=== PATIENT | male | born 1965 | race Caucasian/White ===

== ENCOUNTER 2024-06-16 13:51 | Outpatient (AMB) | payer MEDICAID, SELFPAY ==
[2024-06-16 14:03] VITALS: BP 111/78; PULSE 71; RESP 16; TEMP 36.2; O2SAT 97; BMI 20.6
--- NOTE | 2024-06-16 14:03 | PD.ORTHCLVIS ---
Vital signs 06/16/24 14:03 Height 1.85 m Height Method Stated Weight 71.016 kg Weight Measurement Method Standing Scale BMI 20.6 BP 111/78 Blood Pressure Source Automatic Cuff Blood Pressure Location Left Upper Arm Position Sitting Respiration 16 Pulse 71 Pulse Source Monitor Temp 97.1 F Temp Source Temporal Artery Scan Pulse Oximetry (%) 97 Oxygen Delivery Method Room Air Med/Allergies Allergies & Medications Allergies NKA* Allergy (Uncoded 06/16/24 14:04) Medication Reconciliation No Known Home Medications 06/16/24 [History] Exam Exam Patient is in no acute distress and is cooperative with the examination today. Breathing is nonlabored. Patient has a normal mood and affect. Bilateral extremities were evaluated and demonstrates sensation intact to light touch. Palpable pedal pulses are present. No significant edema is present. Bilateral hips were examined. The patient has no pain with log roll of the hips. Internal rotation to 30 degrees and external rotation to 30 degrees is painless. Negative FADIR. Left knee incision is clean dry and intact. Range of motion 0-105. The right knee was also examined. The right knee is in [varus] alignment. Range of motion from [0-115] degrees. Knee is stable to varus and valgus as well as AP translation with <5mm. Patient has a [negative] McMurrays. There is [no] pain with patellofemoral compression and [no] crepitus noted. The knee is [tender] to palpation [medially]. Assessment and Plan Problem List (1) Status post total knee replacement: Status: Acute (2) Arthritis of knee, right: Status: Acute Plan: Patient is a pleasant 4-year-old male with right knee pain and right knee arthritis. The pain is affecting his quality life and happiness. There is marked deformity of his knee due to the [id number]-zcvu arthritis. We discussed total knee replacement is a reasonable option. He has a lot going on medically and has to get his cataracts taken care of. He will see me when he is ready. He would like to get cortisone injections and we will need authorization for this. Office Procedures GNS Level of Care Nursing/Assessment Patient Status: Initial/New Patient Nursing Assessment/Reassesment: Medication Reconciliation, Update PMH in EMR and Vital Signs Coordination of Care: Complex Care and Chronic Disease 1-5, Education Complex Pt/Fam, Consent,records obtained, informed consent, 1 Ins Authorization and Staff clarify orders New Patient Charge New Patient Point Assignment: 1104 New Patient Point Charge: CLINICAL LAB SCIENTIST Level 3 ([id number]) MA Intake Visit Data Collection New Patient or Established: New Patient (never been to [facility]) Reason for Visit:: RT KNEE PAIN 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: No PCP or OBGYN visit in last 3 months: Yes Hx Now: No Do You Feel Safe at Home: Yes Questionairres Past Medical History Past Medical History Have you ever been diagnosed with any of the following: Respiratory Problems Smoking: No Smoking Exposure: No Subjective Visit Visit for: new patient and knee Immunization / Flu Flu Vaccine in the Last 12 Months: No Flu Vaccine Exclusion Criteria: Refused by Patient History of Present Illness Chief complaint: RT KNEE PAIN Date of 1st surgery (if applicable): LT KNEE TKA 2015 Elio is a pleasant 58-year-old male with right knee pain and right knee arthritis. This been ongoing for several years. He has tried ibuprofen and has not had any recent injections. The pains been affecting quality life and happiness. He notices marked varus deformity. He had a left total knee replacement 2015 Personal History Occupation: UNEMPLOYED BMI Counceling provided: Yes Pain Pain level (0-10): 7 Pain duration: CONSTANT Pain location: inside (medial), outside (lateral), anterior and posterior Pain quality: dull and aching Pain timing: night and increases with activity Associated signs & symptoms: stiffness Ambulatory data Ambulatory device: none Review of Systems Review of Systems: All systems negative unless otherwise noted in HPI.
== END 2024-06-16 14:45 | disposition home or self-care (01) ==
LOC: HODSRG 13:51
PROVIDERS: PCP Family Medicine; Referring Provider Family Medicine; Supervising Provider Orthopaedic Surgery Adult Reconstructive Orthopaedic Surgery; Visit Provider Orthopaedic Surgery Adult Reconstructive Orthopaedic Surgery
DX: M25.561 Pain in right knee (principal); M17.11 Unilateral primary osteoarthritis, right knee; Z96.652 Presence of left artificial knee joint
CPT/HCPCS: 99203; G0463

== ENCOUNTER 2024-07-07 14:44 | Outpatient (AMB) | payer MEDICAID, SELFPAY ==
[2024-07-07 14:56] VITALS: BP 124/83; PULSE 61; RESP 18; TEMP 36.3; O2SAT 98; BMI 21.2
--- NOTE | 2024-07-07 14:56 | PD.ORTHCLVIS ---
Vital signs 07/07/24 14:56 Height 1.85 m Height Method Stated Weight 72.575 kg Weight Measurement Method Standing Scale BMI 21.2 BP 124/83 Blood Pressure Source Automatic Cuff Blood Pressure Location Left Upper Arm Position Sitting Respiration 18 Pulse 61 Pulse Source Monitor Temp 97.3 F Temp Source Temporal Artery Scan Pulse Oximetry (%) 98 Oxygen Delivery Method Room Air Med/Allergies Allergies & Medications Allergies NKA* Allergy (Uncoded 07/07/24 14:56) Medication Reconciliation No Known Home Medications 06/16/24 [History Confirmed 07/07/24] Exam Exam Patient is in no acute distress and is cooperative with the examination today. Breathing is nonlabored. Patient has a normal mood and affect. Bilateral extremities were evaluated and demonstrates sensation intact to light touch. Palpable pedal pulses are present. No significant edema is present. Bilateral hips were examined. The patient has no pain with log roll of the hips. Internal rotation to 30 degrees and external rotation to 30 degrees is painless. Negative FADIR. Left knee incision is clean dry and intact. Range of motion 0-105. The right knee was also examined. The right knee is in [varus] alignment. Range of motion from [0-115] degrees. Knee is stable to varus and valgus as well as AP translation with <5mm. Patient has a [negative] McMurrays. There is [no] pain with patellofemoral compression and [no] crepitus noted. The knee is [tender] to palpation [medially]. Right knee x-rays demonstrates complete joint space narrowing medially with significant loss Assessment and Plan Problem List (1) Status post total knee replacement: Status: Acute (2) Arthritis of knee, right: Status: Acute Plan: Patient is a pleasant 58-year-old male with right knee pain and right knee arthritis. The pain is affecting his quality life and happiness. There is marked deformity of his knee due to the dzmy-ax-lzmp arthritis. We discussed total knee replacement is a reasonable option. He has a lot going on medically and has to get his cataracts taken care of. H Recommend knee cortisone injection as patient would like to proceed with conservative treatment at this time. The risks and benefits of the procedure were reviewed with the patient and patient gave verbal consent to continue with the procedure. Procedure: performed by Dr. Leyva Using sterile technique the Right knee was thoroughly prepped with alcohol, and approximately 1 cc of Kenalog 40 mg/mL and 4 cc of 1% lidocaine was injected without resistance into the medial tibial femoral joint space. The patient tolerated the procedure. Office Procedures GNS Level of Care Nursing/Assessment Patient Status: Established Patient Nursing Assessment/Reassesment: Medication Reconciliation, Update PMH in EMR and Vital Signs Coordination of Care: Complex Care and Chronic Disease 1-5, Education Complex Pt/Fam, Consent,records obtained, informed consent, Results/Orders obtained and Staff clarify orders Established Patient Charge Established Patient Point Assignment: 95 Established Patient Point Charge: EP Level 3 (80-115) MA Intake Visit Data Collection New Patient or Established: Established Patient (seen at [facility] within 3 years) Reason for Visit:: F/U BILATERAL KNEE INJECTION Seen by Clinical Staff ONLY (RN/MA): No Asian Art Curator Required: No PCP or OBGYN visit in last 3 months: Yes Hx Now: No Do You Feel Safe at Home: Yes Authorities Contacted: N/A Questionairres Past Medical History Past Medical History Have you ever been diagnosed with any of the following: Respiratory Problems Smoking: No Smoking Exposure: No Subjective Visit Visit for: follow up visit and hip Immunization / Flu Flu Vaccine in the Last 12 Months: No Flu Vaccine Exclusion Criteria: No Exclusion Criteria History of Present Illness Chief complaint: RT KNEE PAIN Date of 1st surgery (if applicable): LT KNEE TKA 2015 Elio is a pleasant 58-year-old male with right knee pain and right knee arthritis. This been ongoing for several years. He has tried ibuprofen and has not had any recent injections. The pains been affecting quality life and happiness. He notices marked varus deformity. He had a left total knee replacement 2015 Personal History Occupation: UNEMPLOYED BMI Counceling provided: Yes Pain Pain level (0-10): 6 Pain duration: ALL DAY Pain location: inside (medial) Pain quality: sharp, dull and aching Pain timing: increases with activity Associated signs & symptoms: none Ambulatory data Ambulatory device: none Treatments Improvement with previous injections: No Improvement with PT: No Improvement with NSAIDS: no Review of Systems Review of Systems: All systems negative unless otherwise noted in HPI.
== END 2024-07-07 16:02 | disposition home or self-care (01) ==
PROVIDERS: PCP Family Medicine; Referring Provider Family Medicine; Supervising Provider Orthopaedic Surgery Adult Reconstructive Orthopaedic Surgery; Visit Provider Orthopaedic Surgery Adult Reconstructive Orthopaedic Surgery
DX: M17.11 Unilateral primary osteoarthritis, right knee (principal); M25.561 Pain in right knee; Z96.652 Presence of left artificial knee joint
CPT/HCPCS: 20610; 99213; J3301; J3490; G0463